=== PATIENT | female | born 1965 | race Caucasian/White ===

== ENCOUNTER 2018-01-12 08:00 | Inpatient (IN) | payer OTHER ==
[~2018-01-12] VITALS: Ht 160 cm; Wt 92.5 kg
== END 2018-01-15 12:36 | disposition home or self-care (01) | DRG 583 ==
LOC: ADM 08:00 → O/R 01-14 07:09 → EDSTATUS 01-14 08:00 → SURH 01-14 08:00 → CIR.AMB 01-14 08:00 → SURH 01-14 12:00 → SURG 01-14 17:42
PROVIDERS: Surgery
PROC: 0HTT0ZZ Resection of Right Breast, Open Approach (ICD-10-PCS; principal; 2018-01-14 12:00)
DX: C50.811 Malignant neoplasm of overlapping sites of right female breast (principal)

== ENCOUNTER 2019-05-04 06:25 | Day surgery (SDC) | payer OTHER ==
[~2019-05-04 06:25] MED LIST: FEMARA2.5 MG PO; NERLYNX40 MG PO; ZOMETA IV
[2019-05-04] MEDS ORDERED: ULTRACET PO (09:53)
[2019-05-04] MEDS ORDERED: POLY119PG PO (09:54)
== END 2019-05-04 12:30 | disposition home or self-care (01) ==
LOC: CIR.AMB 06:25
DX: K80.10 Calculus of gallbladder with chronic cholecystitis without obstruction (principal); K42.9 Umbilical hernia without obstruction or gangrene